=== PATIENT | male | born 1955 | race African-American/Black ===

== ENCOUNTER 2020-03-04 16:34 | Inpatient (IN) | payer OTHER ==
[2020-03-04] MEDS ORDERED: Diltiazem 125 MG/25 ML ONE (16:43)
[2020-03-04] MEDS ORDERED: Fentanyl 100 MCG/2 ML VIAL ONE ×2 (16:47→17:48)
[2020-03-04 17:12] LABS: Actual Bicarbonate (HCO3a) 23.5 mEq/L (22-28); Analyzer IN Cardio ER; Base Excess (BEa) -5.4 mEq/L (-2.0 to +3.0); CO2 Tension 58.8 mmHg (35.0-45.0); Calcium, Ionized 1.12 mmol/L (1.12-1.30); Carboxyhemoglobin (COHb) 0.4 gm% (0.0-3.0); Hemoglobin (Hb) 16.9 g/dL (14.0-18.0); O2 Tension (PaO2), arterial 55.7 mmHg (> 80.0); Potassium - ABG Lab 3.93 mmol/L (3.70-5.30); pH, Arterial 7.22 (7.35-7.45)
[2020-03-04 17:13] LABS: Puncture Site LBA
[2020-03-04 17:32] LABS: Hemoglobin 16.7 g/dL (14.0-18.0); Mean Corpuscular HGB CONC 32.2 g/dL (32.0-36.0); Mean Corpuscular Hemoglobin 30.2 pg (27.0-31.0); Mean Corpuscular Volume 93.8 fL (78.0-98.0); Mean Platelet Volume 7.1 fL (7.4-10.4); Platelet Count 302 thou/uL (130-400); RBC Distribution Width 12.9 % (11.5-14.5); Red Blood Cell (RBC) Count 5.52 mill/uL (4.70-6.10); White Blood Cell (WBC) Count 22.1 thou/uL (4.8-10.8)
[2020-03-04 17:35] LABS: INR-International Normal Ratio 1.1; PTT 26.9 sec (22.9-36.1)
[2020-03-04 17:50] LABS: Band 12 % (5-11); Eosinophils 1 % (0-10); Lymphocytes 10 % (21-51); MDiff Complete? YES; Metamyelocyte 2 % (0-0); Monocytes 6 % (0-10); Neutrophil 67 % (42-75); Nucleated RBC 2 % (0); Platelet Morphology Comment Appears Adequate; RBC Morphology Normal; Reactive Lymphocytes 2 % (0-10)
[2020-03-04] MEDS ORDERED: fentaNYL Citrate/PF 2,000 MCG in Sodium Chloride 0.9% 60 ML IV SCH (17:56)
[2020-03-04 17:57] LABS: ALT (SGPT) 38 U/L (8-55); AST (SGOT) 87 U/L (5-34); Albumin 2.9 g/dL (3.4-4.8); Alkaline Phosphatase 76 U/L (40-110); Anion Gap 18 mmol/L (10-20); BUN (Urea Nitrogen) 17 mg/dL (8.4-25.7); Bilirubin, Total 1.2 mg/dL (0.2-1.2); Calc. Creatinine Clearance 0 mL/min (70-130); Calcium 7.7 mg/dL (7.8-10.44); Carbon Dioxide 18 mmol/L (23-31); Chloride 101 mmol/L (98-107); Estimated GFR-MDRD Greater than 90; Globulin 4.4 g/dL (2.4-3.5); Glucose 145 mg/dL (80-115); Protein, Total 7.3 g/dL (5.8-8.1); Sodium 133 mmol/L (136-145)
[2020-03-04] MEDS ORDERED: Enoxaparin Sodium 100 MG/ML SYRINGE ONE (18:16)
[2020-03-04] MEDS ORDERED: cefTRIAXone\\ROCEPHIN 2 GM VIAL ONE (18:16)
[2020-03-04] MEDS ORDERED: Azithromycin 500 MG VIAL ONE (18:16)
--- NOTE | 2020-03-04 18:22 | RAD ---
CHEST ONE VIEW: 03/04/20 HISTORY: Respiratory distress. COMPARISON: None. FINDINGS: There are peripheral patchy air space opacities. No pneumothorax. Enteric tube at level of clavicles. Enteric tube tip low diaphragm although out of field of view. Heart size is upper limits of normal. IMPRESSION: Peripheral patchy air space opacities can be seen with atypical viral infectious process. POS: HOME
[2020-03-04 18:29] LABS: CKMB 19.2 ng/mL (0-6.6)
[2020-03-04] MEDS ORDERED: Acetaminophen 650 MG Suppository ONE (18:47)
[2020-03-04] MEDS ORDERED: Sodium Chloride 0.9% 0 ML ONE (19:38)
[2020-03-04] MEDS ORDERED: Vecuronium 10 MG VIAL ONE (19:38)
[2020-03-04] MEDS ORDERED: Sodium Chloride 0.9% 15 ML NEB ONE (19:39)
[2020-03-04] MEDS ORDERED: Rocuronium Bromide 10 MG/ML (10ML VIAL) ONE (19:40)
[2020-03-04] MEDS ORDERED: Propofol 1,000 MG/100 ML VIAL IV ONE (19:43)
[2020-03-04] MEDS ORDERED: Labetalol HCl 100 MG/20 ML VIAL SLOW IVP PRN (20:12)
[2020-03-04] MEDS ORDERED: hydrALAZINE 20 MG/ML VIAL SLOW IVP PRN (20:12)
[2020-03-04] MEDS ORDERED: Ondansetron PF 4 MG/2 ML Vial IVP PRN (20:12)
[2020-03-04] MEDS ORDERED: Promethazine HCl 12.5 MG in Sodium Chloride 0.9% 50 ML IVPB PRN (20:12)
[2020-03-04] MEDS ORDERED: cloNIDine 0.1 MG TAB PO PRN (20:12)
[2020-03-04] MEDS ORDERED: Bisacodyl 10 MG SUPP PR PRN (20:13)
[2020-03-04] MEDS ORDERED: Acetaminophen 325 MG TAB PO PRN (20:13)
[2020-03-04] MEDS ORDERED: Bisacodyl 5 MG TAB PO PRN (20:13)
[2020-03-04] MEDS ORDERED: Norepinephrine 8 MG/0.9% NS 250 ML IVPB PRN (20:13)
[2020-03-04] MEDS ORDERED: Milk Of Magnesia 30 ML UDCUP PO PRN (20:13)
[2020-03-04] MEDS ORDERED: HYDROcodone/Acetaminophen 5/325 mg Tablet PO PRN (20:13)
[2020-03-04] MEDS ORDERED: Mag-Al 1200 mg/1200 mg/30 ML UDCUP PO PRN (20:13)
[2020-03-04] MEDS ORDERED: CCU Electrolyte Replacement 1 EACH IVPB SCH (20:13)
[2020-03-04] MEDS ORDERED: Ventilator Sedation Protocol 1 EACH FS SCH (20:15)
--- NOTE | 2020-03-04 20:16 | PDOC.HHP ---
Hospitalist HPI - History of Present Illness Respiratory failure History of Present Illness: Patient is a 64 year old incarcerated male with PMH HCV, CAD, HTN, HLD who presented to ED intubated after experiencing respiratory failure at his [facility] unit. Per nurse who got report from unit patient was doing well this AM however became acutely short of breath in afternoon and when EMS arrived, his SpO2 was in 50s and patient was intubated on scene. his HR was 150 and wide complex, he was also hypertensive but was improved in ED with cardene drip. . There was concern for covid reported, so patient had a swab done in ED. In ED, troponin checked and was 2.8, reported history includes CAD. he was too unstable for transport to [facility] so admitted here. Hospitalist ROS - Review of Systems ROS unobtainable: due to endotracheal tube - Medication Medications: aspirin oral TueMar 04, 2020 17:23 EDWARD Dia Kaitlyn tablet : Strength - 81 mg : ORAL Patient Dose: 81 mg Oral once a day. atorvastatin TueMar 04, 2020 17:24 EDWARD Dia Kaitlyn tablet : Strength - 40 mg : ORAL Patient Dose: 40 mg Oral once a day. carvedilol TueMar 04, 2020 17:25 EDWARD Dia Kaitlyn tablet : Strength - 12.5 mg : ORAL Patient Dose: 12.5 mg Oral 2 times a day. dipyridamole oral TueMar 04, 2020 17:25 EDWARD Dia Kaitlyn tablet : Strength - 75 mg : ORAL Patient Dose: 75 mg Oral 3 times a day. DULoxetine TueMar 04, 2020 17:26 EDWARD Dia Kaitlyn capsule,delayed release(DR/EC) : Strength - 30 mg : ORAL Patient Dose: 30 mg Oral once a day. gemfibrozil TueMar 04, 2020 17:27 EDWARD Dia Kaitlyn tablet : Strength - 600 mg : ORAL Patient Dose: 600 mg Oral 2 times a day. levothyroxine oral TueMar 04, 2020 17:27 EDWARD Dia Kaitlyn tablet : Strength - 50 mcg : ORAL Patient Dose: 0.05 mg Oral once a day (at bedtime). lisinopril TueMar 04, 2020 17:28 South, RN, Yu tablet : Strength - 40 mg : ORAL Patient Dose: 40 mg Oral once a day. terazosin TueMar 04, 2020 17:28 EDWARD Dia, Yu capsule : Strength - 5 mg : ORAL Patient Dose: 5 mg Oral once a day. nitroglycerin sublingual TueMar 04, 2020 17:29 EDWARD Dia, Yu tablet, sublingual : Strength - 0.4 mg : SUBLINGUAL Patient Dose: 0.4 mg Sublingual As Needed. Hospitalist History - Past Medical History Other Medical History: HCV, CAD, HTN, HLD - Past Surgical History Other Surgical History: unable to obtain due to intubated status - Family History Other Family History: unable to obtain due to intubated status - Social History Other Social History: unable to obtain due to intubated status - Exam General - other findings: intubated, sedated, prone position Eye: PERRL, anicteric sclera ENT: normocephalic atraumatic, no oropharyngeal lesions, moist mucosa ENT - other findings: ET tube in place Neck: supple, symmetric, no JVD, no thyromegaly, no lymphadenopathy, no carotid bruit Heart: RRR, no murmur, no gallops, no rubs, normal peripheral pulses Respiratory: CTAB, no wheezes, no ronchi, normal chest expansion, no tachypnea, normal percussion, rales Gastrointestinal: soft, non-tender, non-distended, normal bowel sounds, no palpable masses, no hepatomegaly, no splenomegaly, no bruit Extremities: no cyanosis, no clubbing, no edema Skin: normal turgor, no lesions, no rashes Neurological - other findings: limited by sedation, see above Musculoskeletal: normal tone, no muscle wasting Hospitalist Results - Labs Result Diagrams: 03/05/20 03:41 03/05/20 03:41 Lab results: WBC 22.1 thou/uL (4.8-10.8) H 03/04/20 17:13 Hgb 16.7 g/dL (14.0-18.0) 03/04/20 17:13 Hct 51.8 % (42.0-52.0) 03/04/20 17:13 MCV 93.8 fL (78.0-98.0) 03/04/20 17:13 Plt Count 302 thou/uL (130-400) 03/04/20 17:13 Band Neuts % (Manual) 12 % (5-11) H 03/04/20 17:13 ABG pH 7.22 (7.35-7.45) L* 03/04/20 17:07 ABG pCO2 58.8 mmHg (35.0-45.0) H 03/04/20 17:07 ABG pO2 55.7 mmHg (> 80.0) L* 03/04/20 17:07 Sodium 133 mmol/L (136-145) L 03/04/20 17:13 Potassium 4.0 mmol/L (3.5-5.1) 03/04/20 17:13 Chloride 101 mmol/L (98-107) 03/04/20 17:13 Carbon Dioxide 18 mmol/L (23-31) L 03/04/20 17:13 BUN 17 mg/dL (8.4-25.7) 03/04/20 17:13 Creatinine 0.84 mg/dL (0.7-1.3) 03/04/20 17:13 Glucose 145 mg/dL (80-115) H 03/04/20 17:13 Lactic Acid 3.0 mmol/L (0.5-2.2) H 03/04/20 17:13 Calcium 7.7 mg/dL (7.8-10.44) L 03/04/20 17:13 Total Bilirubin 1.2 mg/dL (0.2-1.2) 03/04/20 17:13 AST 87 U/L (5-34) H 03/04/20 17:13 ALT 38 U/L (8-55) 03/04/20 17:13 Alkaline Phosphatase 76 U/L (40-110) 03/04/20 17:13 CK-MB (CK-2) 19.2 ng/mL (0-6.6) H* 03/04/20 17:13 Troponin I 2.843 ng/mL (< 0.028) H* 03/04/20 17:13 B-Natriuretic Peptide 345.3 pg/mL (0-100) H 03/04/20 17:13 Serum Total Protein 7.3 g/dL (5.8-8.1) 03/04/20 17:13 Albumin 2.9 g/dL (3.4-4.8) L 03/04/20 17:13 Additional comment: VITAL SIGNS TueMar 04, 2020 18:35 EDWARD Dia Kaitlyn BP: 165/119 MAP: 134 Pulse: 145 Resp: 24 Temp: 101.7 (Criticore Temp) Pain: UTR O2 sat: 91 on (Ventilator) End-Tidal CO2: 24 Time: 03/04/2020 18:35. VITAL SIGNS TueMar 04, 2020 18:43 EDWARD Dia Kaitlyn BP: 126/92 MAP: 103 Pulse: 114 Resp: 25 Temp: 101.7 (Criticore Temp) Pain: UTR O2 sat: 92 on (Ventilator) End-Tidal CO2: 25 Time: 03/04/2020 18:43. VITAL SIGNS TueMar 04, 2020 19:00 EDWARD Ramirez Emily BP: 127/85 Pulse: 114 Resp: 23 Temp: 101.3 (Criticore Temp) Pain: utr O2 sat: 88 on (Ventilator) End-Tidal CO2: 26 Time: 03/04/2020 19:00. VITAL SIGNS TueMar 04, 2020 19:10 EDWARD Ramirez Emily BP: 93/69 MAP: 77 Pulse: 103 Resp: 25 Temp: 101.3 (Criticore Temp) Pain: utr O2 sat: 92 on (Ventilator) End-Tidal CO2: 25 Time: 03/04/2020 19:10. Hospitalist H&P A/P - Plan Plan: Patient is a 64 year old incarcerated male with PMH HCV, CAD, HTN, HLD who presented to ED intubated after experiencing respiratory failure at his [facility] unit. # acute hypoxic respiratory failure - patient presented from unit intubated, suspected covid reported and swab drawn and pending, placed prone and discussed with Dr Duenas who will consult with us in ICU. - standard covid precautions, covid and flu swab - empiric abx # HTN - PRNs in chart # sepsis - likely due to respiratory illness above, follow cultures # tachyarrhythmia - resolved by time of my evalaution, dilt drip titrate in ICU
[2020-03-04] MEDS ORDERED: Propofol BOLUS 1,000 MG/100 ML VIAL IV PRN (20:18)
[2020-03-04] MEDS ORDERED: Potassium Phosphate 12 MMOL in Sodium Chloride 0.9% 250 ML 250 ML IV PRN (20:18)
[2020-03-04] MEDS ORDERED: Potassium Chloride 40 MEQ in Sodium Chloride 0.9% 250 ML 250 ML IVPB PRN (20:18)
[2020-03-04] MEDS ORDERED: Potassium Phosphate 9 MMOL in Sodium Chloride 0.9% 100 ML IVPB PRN (20:18)
[2020-03-04] MEDS ORDERED: Lorazepam 2 MG/ML VIAL SLOW IVP PRN (20:18)
[2020-03-04] MEDS ORDERED: Potassium Chloride 40 MEQ in Premix Bag 1 BAG IVPB PRN (20:18)
[2020-03-04] MEDS ORDERED: PHOS-NAK 1 PKT PACK PO PRN ×2 (20:18)
[2020-03-04] MEDS ORDERED: CCU ELECTROLYTE REPLACEMENT PROTOCOL FS PRN (20:18)
[2020-03-04] MEDS ORDERED: Potassium Chloride 20 MEQ TAB PO PRN (20:18)
[2020-03-04] MEDS ORDERED: Morphine 2 MG/ML SYRINGE SLOW IVP PRN (20:18)
[2020-03-04] MEDS ORDERED: Magnesium 2 GM/50 ML 2 GM in Premix Bag 1 BAG IVPB PRN (20:18)
[2020-03-04] MEDS ORDERED: Fentanyl BOLUS 250 ML IVPB PRN (20:18)
[2020-03-04] MEDS ORDERED: DISCONTINUE PREVIOUS NARCOTIC PAIN MEDICATIONS AND BENZODIAZEPINES FS SCH (20:18)
[2020-03-04] MEDS ORDERED: Potassium Phosphate 15 MMOL in Sodium Chloride 0.9% 250 ML 250 ML IV PRN (20:18)
[2020-03-04] MEDS ORDERED: Magnesium Oxide 400 MG TAB PO PRN ×2 (20:18)
[2020-03-04 20:39] LABS: Lactic Acid 5.3 mmol/L (0.5-2.2)
[2020-03-04] MEDS: Sodium Chloride 0.9% 1,000 ML IV SCH ×2 (20:41→21:19)
[2020-03-04] MEDS ORDERED: Sodium Chloride 0.9% 1,000 ML IV SCH (20:45)
[2020-03-04] MEDS: Famotidine 40 MG/5 ML Oral Suspension PER TUBE SCH (20:48)
[2020-03-04 20:55] LABS: Troponin I 5.673 ng/mL (< 0.028)
[2020-03-04] MEDS ORDERED: Albumin 25% 25 GM/100 ML BOT IVPB SCH (21:00)
[2020-03-04] MEDS ORDERED: cefTRIAXone\\ROCEPHIN 1 GM in Sodium Chloride 0.9% 100 ML IVPB ONE (21:54)
[2020-03-04] MEDS ORDERED: Enoxaparin Sodium 80 MG/0.8 ML SYRINGE SC ONE (21:56)
[2020-03-04 23:57] LABS: Troponin I 7.292 ng/mL (< 0.028)
[2020-03-05] MEDS: Rocuronium Bromide 10 MG/ML (10ML VIAL) IVP PRN ×6 (00:08→19:21)
[2020-03-05] MEDS ORDERED: Aspirin 325 mg Enteric Coated Tablet PO SCH (00:30)
[2020-03-05] MEDS: Sodium Chloride 0.9% 1,000 ML IV SCH ×4 (01:24→21:12)
--- NOTE | 2020-03-05 02:38 | CON ---
DATE OF CONSULTATION: 03/04/2020 HISTORY OF PRESENT ILLNESS: Bean Herrmann is a 64-year-old male [facility] inmate. He is transferred to [facility] today from the [place] [facility]. He is unable to give a history. He is intubated. No history could be provided by the guards. No medical chart accompanied the patient. He has diffuse infiltrates. That unit has been associated with a COVID-19 outbreak, so it is presumed that is what we dealing with. PAST MEDICAL HISTORY: Unknown. FAMILY HISTORY: Unknown. SOCIAL HISTORY: Unknown. REVIEW OF SYSTEMS: Not obtainable. PHYSICAL EXAMINATION: VITAL SIGNS: Blood pressures in the Emergency Department were not reported as low. His first blood pressure when he arrived in the ICU was in 70s. He has 100% oxygen in the Emergency Department, so he was prone ventilated when he arrived from the ICU. HEAD AND NECK: Unremarkable. LUNGS: Remarkable for coarse breath sounds. HEART: Regular rhythm. ABDOMEN: Soft. EXTREMITIES: Without edema. LABORATORY DATA: White count 22.1, hemoglobin 16.7, and platelets 302. Electrolytes are unremarkable. Bicarb was 18 and lactate was 5.3. Troponin was elevated at 5 and BNP 345. He had a temperature of a 101 in the Emergency Department. CLINICAL IMPRESSION AND PLAN: Presumed COVID-19 pneumonia to be ventilated. Suggested dose started. He is on Zithromax broad antimicrobial therapy. Begin steroids. Once we are sure he has COVID, we can consider Itolizumab or convalescent plasma. Will be kept paralyzed while he is prone ventilated. A low dose of epinephrine can be given until he is adequately volume resuscitated. Critical care time 30 minutes. Job ID: [id number] MTDD
[2020-03-05 04:14] LABS: Anion Gap 16 mmol/L (10-20); BUN (Urea Nitrogen) 19 mg/dL (8.4-25.7); Calc. Creatinine Clearance 83 mL/min (70-130); Calcium 7.2 mg/dL (7.8-10.44); Carbon Dioxide 16 mmol/L (23-31); Chloride 105 mmol/L (98-107); Estimated GFR-MDRD 83; Glucose 142 mg/dL (80-115); Magnesium 2.1 mg/dL (1.6-2.6); Potassium 4.2 mmol/L (3.5-5.1); Sodium 133 mmol/L (136-145)
[2020-03-05 04:17] LABS: Band 4 % (5-11); Hemoglobin 15.1 g/dL (14.0-18.0); Lymphocytes 2 % (21-51); MDiff Complete? YES; Mean Corpuscular HGB CONC 33.6 g/dL (32.0-36.0); Mean Corpuscular Hemoglobin 31.3 pg (27.0-31.0); Mean Corpuscular Volume 93.3 fL (78.0-98.0); Mean Platelet Volume 7.7 fL (7.4-10.4); Monocytes 9 % (0-10); Neutrophil 85 % (42-75); Platelet Count 246 thou/uL (130-400); Platelet Morphology Comment Appears Adequate; RBC Distribution Width 13.2 % (11.5-14.5); RBC Morphology Normal; Red Blood Cell (RBC) Count 4.82 mill/uL (4.70-6.10); White Blood Cell (WBC) Count 20.4 thou/uL (4.8-10.8)
[2020-03-05 04:30] LABS: Critical Call Chem Troponin I RESULT DECREASING; Troponin I 6.995 ng/mL (< 0.028)
[2020-03-05] MEDS ORDERED: Diltiazem 125 MG in Sodium Chloride 0.9% 100 ML IVPB SCH (04:45)
[2020-03-05] MEDS ORDERED: Nitroglycerin 0.4 MG TAB (25 Tab Bottle) SL PRN (04:45)
[2020-03-05 07:05] LABS: Actual Bicarbonate (HCO3a) 11.5 mEq/L (22-28); Base Excess (BEa) -9.2 mEq/L (-2.0 to +3.0); Calcium, Ionized 1.05 mmol/L (1.12-1.30); Carboxyhemoglobin (COHb) 0.2 gm% (0.0-3.0); Hemoglobin (Hb) 17.6 g/dL (14.0-18.0); O2 Tension (PaO2), arterial 89.6 mmHg (> 80.0); Potassium - ABG Lab 3.81 mmol/L (3.70-5.30); pH, Arterial 7.43 (7.35-7.45)
[2020-03-05 07:31] LABS: CO2 Tension 17.6 mmHg (35.0-45.0); Puncture Site RRAD
[2020-03-05] MEDS: Aspirin Chewable 81 MG TAB PER TUBE SCH (08:34)
[2020-03-05] MEDS: methylPREDNISolone Sod Succ/PF 125 MG/2 ML VIAL IVP SCH (08:36)
[2020-03-05] MEDS: Famotidine 40 MG/5 ML Oral Suspension PER TUBE SCH ×2 (08:37→19:20)
[2020-03-05] MEDS: Enoxaparin Sodium 80 MG/0.8 ML SYRINGE SC SCH ×2 (08:38→19:18)
[2020-03-05] MEDS ORDERED: Atorvastatin Calcium 40 MG TAB PO SCH (09:00)
[2020-03-05] MEDS ORDERED: Carvedilol 6.25 MG TAB PO SCH (09:00)
[2020-03-05] MEDS ORDERED: Terazosin HCl 5 MG CAP PO SCH (09:00)
[2020-03-05] MEDS ORDERED: Lisinopril 20 MG TAB PO SCH (09:00)
[2020-03-05] MEDS ORDERED: Enoxaparin Sodium 40 MG/0.4 ML SYRINGE SC SCH (09:00)
[2020-03-05] MEDS ORDERED: DULoxetine 30 MG CAP PO SCH (09:00)
[2020-03-05] MEDS ORDERED: Aspirin 81 mg Enteric Coated Tablet PO SCH (09:00)
--- NOTE | 2020-03-05 11:46 | PDOC.HOSPP ---
- Subjective Encounter Date: 03/05/20 Encounter Time: 10:00 Subjective: pt was on prone position, on bilevel ventilatory support Patient seen and examined. No overnight events - Objective Vital Signs & Weight: Vital Signs (12 hours) Pulse Resp BP 03/05/20 09:42 116/82 03/05/20 08:35 116/82 03/05/20 06:21 76 03/05/20 06:00 30 H 03/05/20 04:00 30 H 03/05/20 03:36 83 03/05/20 02:00 30 H 03/05/20 01:40 84 03/05/20 00:00 30 H Weight Admit Weight 187 lb Weight 187 lb Most Recent Monitor Data Heart Rate from ECG 83 NIBP 116/81 NIBP BP-Mean 92 Respiration from ECG 17 SpO2 100 I&O: 03/04/20 03/05/20 03/06/20 06:59 06:59 06:59 Intake Total 3344.8 Output Total 520 30 Balance 2824.8 -30 Result Diagrams: 03/05/20 03:41 03/05/20 03:41 Radiology Reviewed by me: Yes EKG Reviewed by me: Yes Hospitalist ROS - Review of Systems ROS unobtainable: due to endotracheal tube - Medication Medications: Active Medications Generic Name Dose Route Start Last Admin Trade Name Kdq PRN Reason Stop Dose Admin Aspirin 81 mg 03/05/20 09:00 03/05/20 08:34 Aspirin Chewable PER TUBE 81 mg DAILY LAN Administration Enoxaparin Sodium 80 mg 03/05/20 09:00 03/05/20 08:38 Lovenox SC 80 mg 0900,2100 LAN Administration Famotidine 20 mg 03/04/20 21:00 03/05/20 08:37 Pepcid PER TUBE 20 mg BID LAN Administration Epinephrine 1 mg/ Dextrose/ 251 mls @ 0 mls/hr 03/04/20 21:00 03/04/20 20:57 Water IVPB 251 mls INF LAN Administration Protocol Titrate Sodium Chloride 1,000 mls @ 125 mls/hr 03/04/20 21:00 03/05/20 08:33 Normal Saline 0.9% IV 1,000 mls .Q8H LAN Administration Methylprednisolone Sodium Succinate 80 mg 03/05/20 09:00 03/05/20 08:36 Solu-Medrol IVP 80 mg DAILY LAN Administration Rocuronium [place] 100 mg 03/04/20 20:38 03/05/20 08:37 Zemuron IVP 100 mg Q1HR PRN Administration Agitation Sodium Chloride 10 ml 03/04/20 21:00 03/05/20 08:38 Flush - Normal Saline IVF 10 ml Q12HR LAN Administration - Exam General Appearance: ill appearing Eye: PERRL ENT: normocephalic atraumatic Neck: supple Heart: RRR, no murmur, no gallops Respiratory - other findings: coarse sound bilateral Gastrointestinal: soft Extremities: no edema Hosp A/P (1) Acute respiratory failure with hypoxia Code(s): J96.01 - ACUTE RESPIRATORY FAILURE WITH HYPOXIA Status: Acute (2) Type [address] elevation Code(s): I21.A1 - MYOCARDIAL INFARCTION TYPE 2 Status: Acute (3) Hyponatremia Code(s): E87.1 - HYPO-OSMOLALITY AND HYPONATREMIA Status: Acute (4) Lactic acidosis Code(s): E87.2 - ACIDOSIS Status: Acute (5) Viral pneumonia Code(s): J12.9 - VIRAL PNEUMONIA, UNSPECIFIED Status: Acute - Plan old records reviewed/req, continue antibiotics continue ventilator support as per pulmonary IVF will defer to pulmonary continue solumedrol will repeat inflammatory markers tomorrow await covid test result, high suspected for covid based on on result next step would be to decide remsedivir vs plasma continue rocephin and azithromycin for now will add vitamin c, zinc sulfate continue lovenox cardiology on case
--- NOTE | 2020-03-05 15:55 | PRG ---
DATE OF SERVICE: 03/05/2020 SUBJECTIVE: Bean Herrmann is doing well proned. OBJECTIVE: VITAL SIGNS: Heart rate in the 70s, respiratory rate 30, blood pressure 108/77. LUNGS: Unchanged. HEART: Unchanged. ABDOMEN: Unchanged. LABORATORY DATA: COVID screen is still not back. White count 20.4, hemoglobin 15.1, platelets 246. Electrolytes are unremarkable. PH this morning 7.43, pCO2 of 17, pO2 of 89. IMPRESSION: Bilateral pneumonia, likely COVID since he came from [facility] unit that is overrun with COVID patients. PLAN: Continue ventilation. We will flip him on his back this evening. CRITICAL CARE TIME: 30 minutes. Job ID: [id number]
[2020-03-05 16:01] LABS: SARS-CoV-2 MS2 Positive; SARS-CoV-2 N Gene Positive; SARS-CoV-2 S Gene Positive; SARS-CoV-2 orf1ab Positive
--- NOTE | 2020-03-05 17:49 | CON ---
DATE OF CONSULTATION: 03/05/2020 HISTORY OF PRESENT ILLNESS: The patient is a 64-year-old gentleman, who presented with acute onset of dyspnea and tachycardia and required emergent intubation. The patient is unable to give a history. The patient presented to the emergency room with rapid tachycardia and was markedly hypertensive. He was treated with IV Cardizem. The patient was admitted and thought to have possible COVID pneumonia and a history could not be obtained. PAST MEDICAL HISTORY: Unknown. PAST SURGICAL HISTORY: None. SOCIAL HISTORY: Unknown. MEDICATIONS: Included: 1. Lisinopril 40 daily. 2. Gemfibrozil 600 daily. 3. Dipyridamole 75 t.i.d. 4. Cymbalta 30 daily. 5. Coreg 12.5 b.i.d. 6. Lipitor 40 at bedtime. 7. Aspirin 81 daily. PHYSICAL EXAMINATION: VITAL SIGNS: His blood pressure is 96/75, heart rate is 74. The physical examination is otherwise deferred secondary to COVID. LABORATORY RESULTS: White blood cell count 20.4, hemoglobin 15.1, hematocrit 45.0, and platelets 246. His sodium is 133, potassium 4.2, chloride 105, bicarb 16, BUN 19, creatinine 1.0, and glucose is 142. Troponin is 7.2. IMAGING DATA: Chest x-ray was suggestive of bilateral pneumonia. EKG revealed sinus tachycardia with a right bundle-branch block and left anterior fascicular block. IMPRESSION: 1. Pneumonia, possibly due to COVID. 2. Non-Q-wave myocardial infarction. 3. Respiratory failure. PLAN: This patient has possible COVID pneumonia, results are still pending. The patient may have suffered a non-Q-wave myocardial infarction or have myocarditis. The patient is being treated with aspirin and Lovenox. From a cardiac standpoint, we would continue him on low-dose Coreg if blood pressure tolerates. Further recommendation will follow. CRITICAL CARE TIME: 30 minutes. Job ID: [id number] MTDD
[2020-03-05] MEDS ORDERED: cefTRIAXone\\ROCEPHIN 1 GM in Sodium Chloride 0.9% 100 ML IVPB SCH (18:00)
[2020-03-05] MEDS: Atorvastatin Calcium 40 MG TAB PO SCH (19:18)
[2020-03-05] MEDS: Carvedilol 6.25 MG TAB PO SCH (19:18)
[2020-03-05] MEDS ORDERED: Azithromycin 500 MG in Sodium Chloride 0.9% 250 ML 250 ML IVPB SCH (20:00)
[2020-03-05] MEDS: Propofol 1,000 MG/100 ML VIAL IV PRN (21:11)
[2020-03-06] MEDS: Rocuronium Bromide 10 MG/ML (10ML VIAL) IVP PRN ×3 (00:07→08:42)
[2020-03-06] MEDS: fentaNYL Citrate/PF 2,000 MCG in Sodium Chloride 0.9% 60 ML IV SCH (01:00)
[2020-03-06 04:30] LABS: Anion Gap 15 mmol/L (10-20); BUN (Urea Nitrogen) 27 mg/dL (8.4-25.7); Calc. Creatinine Clearance 87 mL/min (70-130); Calcium 7.2 mg/dL (7.8-10.44); Carbon Dioxide 15 mmol/L (23-31); Chloride 111 mmol/L (98-107); Estimated GFR-MDRD 88; Glucose 142 mg/dL (80-115); Lactic Acid 3.1 mmol/L (0.5-2.2); Magnesium 2.4 mg/dL (1.6-2.6); Potassium 3.9 mmol/L (3.5-5.1); Sodium 137 mmol/L (136-145)
[2020-03-06 04:41] LABS: Band 12 % (5-11); Lymphocytes 8 % (21-51); MDiff Complete? YES; Mean Corpuscular HGB CONC 33.6 g/dL (32.0-36.0); Mean Corpuscular Hemoglobin 31.4 pg (27.0-31.0); Mean Corpuscular Volume 93.3 fL (78.0-98.0); Mean Platelet Volume 8.7 fL (7.4-10.4); Monocytes 4 % (0-10); Neutrophil 76 % (42-75); Platelet Count 286 thou/uL (130-400); Platelet Morphology Comment Appears Adequate; RBC Distribution Width 13.6 % (11.5-14.5); Red Blood Cell (RBC) Count 4.48 mill/uL (4.70-6.10); White Blood Cell (WBC) Count 15.7 thou/uL (4.8-10.8)
[2020-03-06] MEDS: Sodium Chloride 0.9% 1,000 ML IV SCH ×2 (05:24→13:08)
[2020-03-06] MEDS: Ascorbic Acid 500 mg Chewable Tablet PER TUBE SCH (08:40)
[2020-03-06] MEDS: Zinc Sulfate 220 MG CAP PER TUBE SCH (08:41)
[2020-03-06] MEDS: methylPREDNISolone Sod Succ/PF 125 MG/2 ML VIAL IVP SCH (08:41)
[2020-03-06] MEDS: Aspirin Chewable 81 MG TAB PER TUBE SCH (08:41)
[2020-03-06] MEDS: Carvedilol 6.25 MG TAB PO SCH ×2 (08:41→20:40)
[2020-03-06] MEDS: Enoxaparin Sodium 80 MG/0.8 ML SYRINGE SC SCH ×2 (08:41→20:41)
[2020-03-06] MEDS: Famotidine 40 MG/5 ML Oral Suspension PER TUBE SCH ×2 (10:18→20:41)
--- NOTE | 2020-03-06 11:12 | PDOC.HOSPP ---
- Subjective Encounter Date: 03/06/20 Encounter Time: 10:00 Subjective: pt is intubated, on bilevel ventilator, Patient seen and examined. No overnight events - Objective Vital Signs & Weight: Vital Signs (12 hours) Temp Pulse Resp BP 03/06/20 10:24 63 03/06/20 10:00 30 H 03/06/20 08:41 110/74 03/06/20 08:00 30 H 03/06/20 06:00 30 H 03/06/20 05:00 99.0 F 03/06/20 04:00 30 H 03/06/20 02:53 61 101/69 03/06/20 01:57 30 H 03/06/20 01:00 98.8 F 03/06/20 00:14 64 103/73 03/05/20 23:59 30 H Weight Admit Weight 187 lb Weight 192 lb 3.889 oz Most Recent Monitor Data Heart Rate from ECG 62 NIBP 122/71 NIBP BP-Mean 88 Respiration from ECG 30 SpO2 97 I&O: 03/05/20 03/06/20 03/07/20 06:59 06:59 06:59 Intake Total 3344.8 3524.4 60 Output Total 520 850 145 Balance 2824.8 2674.4 -85 Result Diagrams: 03/06/20 03:43 03/06/20 03:43 Radiology Reviewed by me: Yes EKG Reviewed by me: Yes Hospitalist ROS - Review of Systems ROS unobtainable: due to endotracheal tube - Medication Medications: Active Medications Generic Name Dose Route Start Last Admin Trade Name Freq PRN Reason Stop Dose Admin Ascorbic Acid 1,000 mg 03/06/20 09:00 03/06/20 08:40 Vitamin C PER TUBE 1,000 mg DAILY LAN Administration Aspirin 81 mg 03/05/20 09:00 03/06/20 08:41 Aspirin Chewable PER TUBE 81 mg DAILY LAN Administration Atorvastatin Calcium 40 mg 03/05/20 21:00 03/05/20 19:18 Lipitor PO 40 mg HS LAN Administration Carvedilol 6.25 mg 03/05/20 21:00 03/06/20 08:41 Coreg PO 6.25 mg BID LAN Administration Enoxaparin Sodium 80 mg 03/05/20 09:00 03/06/20 08:41 Lovenox SC 80 mg 0900,2100 LAN Administration Famotidine 20 mg 03/04/20 21:00 03/06/20 10:18 Pepcid PER TUBE 20 mg BID LAN Administration Fentanyl Citrate 2,000 mcg/ 100 mls @ 0 mls/hr 03/04/20 20:18 03/06/20 01:00 Sodium Chloride IV 04/03/20 20:18 100 mls INF LAN Administration Protocol Per Protocol Epinephrine 1 mg/ Dextrose/ 251 mls @ 0 mls/hr 03/04/20 21:00 03/04/20 20:57 Water IVPB 251 mls INF LAN Administration Protocol Titrate Sodium Chloride 1,000 mls @ 125 mls/hr 03/04/20 21:00 03/06/20 05:24 Normal Saline 0.9% IV 1,000 mls .Q8H LAN Administration Methylprednisolone Sodium Succinate 80 mg 03/05/20 09:00 03/06/20 08:41 Solu-Medrol IVP 80 mg DAILY LAN Administration Propofol 1,000 mg 03/04/20 20:18 03/05/20 21:11 Diprivan IV 04/03/20 20:18 1,000 mg INF PRN Administration TO ACHIEVE GOAL RASS Protocol Rocuronium [place] 100 mg 03/04/20 20:38 03/06/20 08:42 Zemuron IVP 100 mg Q1HR PRN Administration Agitation Sodium Chloride 10 ml 03/04/20 21:00 03/06/20 10:16 Flush - Normal Saline IVF Not Given Q12HR LAN Zinc Sulfate 220 mg 03/06/20 09:00 03/06/20 08:41 Zinc Sulfate PER TUBE 220 mg DAILY LAN Administration - Exam General Appearance: NAD, ill appearing Eye: PERRL, anicteric sclera ENT: normocephalic atraumatic, no oropharyngeal lesions Neck: supple, symmetric, no JVD Heart: RRR, no murmur, no gallops Respiratory - other findings: bilateral basal rales, Gastrointestinal: soft, non-distended, normal bowel sounds Extremities: no cyanosis, no clubbing Skin: normal turgor Hosp A/P (1) Acute respiratory failure with hypoxia Code(s): J96.01 - ACUTE RESPIRATORY FAILURE WITH HYPOXIA Status: Acute (2) Type [address] elevation Code(s): I21.A1 - MYOCARDIAL INFARCTION TYPE 2 Status: Acute (3) Hyponatremia Code(s): E87.1 - HYPO-OSMOLALITY AND HYPONATREMIA Status: Acute (4) Lactic acidosis Code(s): E87.2 - ACIDOSIS Status: Acute (5) Viral pneumonia Code(s): J12.9 - VIRAL PNEUMONIA, UNSPECIFIED Status: Acute - Plan old records reviewed/req, continue antibiotics, respiratory therapy continue ventilator support as per pulmonary IVF will defer to pulmonary continue solumedrol will repeat inflammatory markers tomorrow await covid test result, high suspected for covid based on on result next step would be to decide remsedivir vs plasma continue rocephin and azithromycin for now will add vitamin c, zinc sulfate continue lovenox cardiology on case 03/06/20 covid-19 is positive, will consult ID pt may need convalescent plasma vs Residevir medication reviewed continue to provide supportive care symptomatic treatment ventilator as per pulmonary prognosis guarded. pt has elevated inflammatory marker and monitor
[2020-03-06] MEDS: Propofol 1,000 MG/100 ML VIAL IV PRN (13:07)
--- NOTE | 2020-03-06 14:49 | PQF ---
CLINICAL DOCUMENTATION IMPROVEMENT CLARIFICATION FORM: ICD-10 Updated PLEASE DO AN ADDENDUM TO THE PROGRESS NOTE WITH ANY DOCUMENTATION UPDATES OR ADDITIONS AND CARRY THROUGH TO DC SUMMARY. THANK YOU. DATE: 03/06/2020 ATTN: Dr. Wakefield Please exercise your independent, professional judgment in responding to the clarification form. Clinical indicators are provided on the bottom of this form for your review Please check appropriate box(s) to clarify if the following diagnosis has been ruled in or ruled out: SEPSIS [ x ] Ruled in diagnosis [ x ] Continue to treat [ ] Resolved [ ] Ruled out diagnosis [ ] Improving [ ] Cannot rule out diagnosis [ ] Other diagnosis [ ] Unable to determine In addition, please specify: Present on Admission (POA): [ x ] Yes [ ] No [ ] Unable to determine For continuity of documentation, please document condition throughout progress notes and discharge summary. Thank You. CLINICAL INDICATORS - SIGNS / SYMPTOMS / LABS / RESULTS AND LOCATION IN MR H&P 03/04 : when EMS arrived, his SpO2 was in 50s and pt was intubated on scene. Lab: WBC 22.1 Lactic Acid 3.0 VS: BP 165/119. pulse 145, Resp. 24 Temp: 101.7 (Criticore Temp) O2 sat: 91 on (Ventilator) A/P: Acute Hypoxic respiratory failure Sepsis - likely due to respiratory illness RISKS: H&P 03/04: 64 yo incarcerated male with PMH HCV, CAD, HTN who presented to ED intubated after experiencing respiratory failure at his nursing home unit. 03/06 (Twyla) covid-19 is positive TREATMENT: H&P 03/04: -standard covid precautions, covid and flu swab. empiric abx MAR: Order 03/04: NS IV 125 mls/hr Order 03/04: Resp. Vent continuous ID Consult ordered 03/06 Thank you, Dianne (This form is maintained as a part of the permanent medical record) 2014 [employer] All Rights Reserved Dianne Nobles RN, BSN [email or web address]
--- NOTE | 2020-03-06 16:51 | PRG ---
DATE OF SERVICE: Bean Herrmann is no longer requiring prone ventilation. He did not have a blood gas done today, still ventilated at a rate of 30. His FiO2 requirements have dropped significantly since he was started on prone ventilation and then switched back to the supine position. He is being cross-matched for convalescent plasma today. We will continue to follow. Job ID: [id number]
[2020-03-06] MEDS ORDERED: Non-Formulary Item 1 EACH in Sodium Chloride 0.9% 250 ML 210 ML IV SCH (18:00)
[2020-03-06] MEDS: cefTRIAXone\\ROCEPHIN 1 GM in Sodium Chloride 0.9% 100 ML IVPB SCH (19:35)
--- NOTE | 2020-03-06 20:34 | CON ---
DATE OF CONSULTATION: 03/06/2020 HISTORY OF PRESENT ILLNESS: Mr. Herrmann is here because of COVID pneumonia, 64-year-old, who is an inmate at [facility] and has a history of hepatitis C with unknown prior treatment, osteoarthritis, coronary artery disease, and hyperlipidemia/hypertension, who has been admitted because of worsening dyspnea. The onset of symptoms appears to have been a few days before admission maybe a day or two, not clear from the note. The patient had to be intubated en route to the emergency room and on arrival, his BP was 200/110 and then came down to 160/98, pulse 129, respirations 22, and O2 saturation 90%. The temperature was 102. Subsequent temperatures remained elevated and BP came down to 120/85. In the initial exam, the patient was responsive to painful stimuli, did not follow commands. There is no evidence of jugular vein distention. Lungs with clear breath sounds. The heart exam is regular rate. No murmurs. Abdomen appears soft and bowel sounds are present. Flores catheter was inserted and other findings included sodium 133, creatinine 0.84, glucose 145, calcium 7.7, AST 87, and albumin 2.9. Troponin 2.8 and then 5.6. White cell count is 22,000, hemoglobin 16, platelets 302 with 12% bands. INR is 1.1. D-dimer is greater than 20. A pH of 7.22, pCO2 of 58, and pO2 of 55. Lactic acid was 3 and then 5.3 and now is down 3.1. LDH was 904. Ferritin 1173. C-reactive protein 9.91. COVID PCR was positive. The chest x- ray showed bilateral pulmonary infiltrates. The chest tube in proper position and currently, he is intubated. His FiO2 is 40% and O2 saturations are good at 100. His heart rate 61. PAST MEDICAL HISTORY: Includes coronary artery disease, hyperlipidemia, hypertension, hypothyroidism, osteoarthritis, and hepatitis C, unclear history of treatment. SOCIAL HISTORY: He is at [facility]. ALLERGIES: CARBAMATES. MEDICATIONS: 1. Atorvastatin. 2. Coreg. 3. Duloxetine. 4. Gemfibrozil. 5. Levothyroxine. 6. Lisinopril. 7. Terazosin. 8. Nitroglycerin. Here in the hospital, in addition, he is on; 1. Lovenox therapeutic dose. 2. Ceftriaxone. 3. Epinephrine. 4. Fentanyl. 5. Hydralazine. 6. Labetalol. 7. Lorazepam p.r.n. 8. Magnesium. 9. Methylprednisolone. 10. Nitroglycerin. 11. Ceftriaxone. 12. Azithromycin. PHYSICAL EXAMINATION: VITAL SIGNS: T-max 98.8 to 99, BP 113/95, pulse 61, respirations 30, and O2 saturation 100 and FiO2 of 40. I's and O's positive almost 6000 mL for the past 2 days. Indwelling Flores catheter. SKIN: Multiple tattoos. He has a peripheral IV access. Flores catheter. HEENT: Constricted pupils. Sclerae white. Conjunctivae normal. Orotracheal intubation. NECK: Some jugular vein distention. LUNGS: With symmetric air entry. No obvious crackles or wheezing. HEART: S1 and S2. Regular rate without murmurs. ABDOMEN: Not distended and soft. Bowel sounds are present. No organomegaly or ascites. No bladder distention. EXTREMITIES: No joint inflammatory activity. Pulses are 1+ in dorsalis pedis. No edema. No reflexes are noticeable at this time. NEUROLOGIC: He is sedated. LABORATORY DATA: Latest labs show white cell count 15.7, hemoglobin 14, and platelets 286 with 12% bands. Creatinine is 1.03. One out of two sets of blood cultures, coagulase negative Staph likely contaminant. Respiratory virus PCR negative except for the COVID test, which was positive. Respiratory culture unremarkable. ASSESSMENT: 1. Hypertension, coronary artery disease, and hep C, unknown history of treatment. 2. COVID-19 pneumonia, severe. DISCUSSION: Duration of therapy at this point is not clear, may be four or five days. The patient meets criteria for Remdesivir, I will go ahead and get started and continue supportive therapy. Proning as needed. Additional interventions such as convalescent plasma may be considered. A bit too soon for immunosuppressants to be considered. Blood cultures are negative, then I would probably consider discontinuing azithromycin and Rocephin. Continue monitoring inflammatory markers. Job ID: [id number] MTDD
[2020-03-06] MEDS: Atorvastatin Calcium 40 MG TAB PO SCH (20:40)
[2020-03-06] MEDS ORDERED: Azithromycin 500 MG in Sodium Chloride 0.9% 250 ML 250 ML IVPB SCH (21:00)
[2020-03-07] MEDS: Sodium Chloride 0.9% 1,000 ML IV SCH ×4 (01:31→20:29)
[2020-03-07] MEDS: Propofol 1,000 MG/100 ML VIAL IV PRN ×3 (04:02→19:05)
[2020-03-07 04:37] LABS: Anion Gap 15 mmol/L (10-20); BUN (Urea Nitrogen) 34 mg/dL (8.4-25.7); Calc. Creatinine Clearance 85 mL/min (70-130); Calcium 7.3 mg/dL (7.8-10.44); Carbon Dioxide 14 mmol/L (23-31); Chloride 113 mmol/L (98-107); Estimated GFR-MDRD 83; Glucose 125 mg/dL (80-115); Magnesium 2.6 mg/dL (1.6-2.6); Potassium 3.8 mmol/L (3.5-5.1); Sodium 138 mmol/L (136-145)
[2020-03-07 04:43] LABS: Band 3 % (5-11); Hemoglobin 14.1 g/dL (14.0-18.0); Lymphocytes 8 % (21-51); MDiff Complete? YES; Mean Corpuscular HGB CONC 34.4 g/dL (32.0-36.0); Mean Corpuscular Hemoglobin 31.8 pg (27.0-31.0); Mean Corpuscular Volume 92.6 fL (78.0-98.0); Mean Platelet Volume 8.2 fL (7.4-10.4); Monocytes 11 % (0-10); Neutrophil 78 % (42-75); Nucleated RBC 1 % (0); Platelet Count 350 thou/uL (130-400); RBC Distribution Width 13.7 % (11.5-14.5); Red Blood Cell (RBC) Count 4.42 mill/uL (4.70-6.10); White Blood Cell (WBC) Count 14.9 thou/uL (4.8-10.8)
[2020-03-07] MEDS: Zinc Sulfate 220 MG CAP PER TUBE SCH (08:21)
[2020-03-07] MEDS: Ascorbic Acid 500 mg Chewable Tablet PER TUBE SCH (08:21)
[2020-03-07] MEDS: Carvedilol 6.25 MG TAB PO SCH ×2 (08:22→20:27)
[2020-03-07] MEDS: Enoxaparin Sodium 80 MG/0.8 ML SYRINGE SC SCH (08:22)
[2020-03-07] MEDS: Aspirin Chewable 81 MG TAB PER TUBE SCH (08:22)
[2020-03-07] MEDS: Acetaminophen 650 MG/20.3 ML UDCUP PO PRN (08:22)
[2020-03-07] MEDS: methylPREDNISolone Sod Succ/PF 125 MG/2 ML VIAL IVP SCH (08:23)
[2020-03-07] MEDS: fentaNYL Citrate/PF 2,000 MCG in Sodium Chloride 0.9% 60 ML IV SCH (08:24)
[2020-03-07] MEDS: Famotidine 40 MG/5 ML Oral Suspension PER TUBE SCH ×2 (08:28→20:28)
--- NOTE | 2020-03-07 10:14 | PDOC.HOSPP ---
- Subjective Encounter Date: 03/07/20 Encounter Time: 07:00 Subjective: Patient seen and examined. pt is on vent, No overnight events - Objective Vital Signs & Weight: Vital Signs (12 hours) Temp Pulse Resp BP 03/07/20 08:22 131/70 03/07/20 06:59 60 122/82 03/07/20 06:00 30 H 03/07/20 04:00 97.5 F L 30 H 03/07/20 02:16 58 L 115/81 03/07/20 02:00 30 H 03/07/20 00:20 59 L 110/79 03/07/20 00:00 97.2 F L 30 H Weight Admit Weight 187 lb Weight 198 lb 10.184 oz Most Recent Monitor Data Heart Rate from ECG 59 NIBP 128/86 NIBP BP-Mean 100 Respiration from ECG 30 SpO2 100 I&O: 03/06/20 03/07/20 03/08/20 06:59 06:59 06:59 Intake Total 3524.4 3832.8 Output Total 850 1050 Balance 2674.4 2782.8 Result Diagrams: 03/07/20 03:38 03/07/20 03:38 Radiology Reviewed by me: Yes EKG Reviewed by me: Yes Hospitalist ROS - Review of Systems ROS unobtainable: due to endotracheal tube - Medication Medications: Active Medications Generic Name Dose Route Start Last Admin Trade Name Freq PRN Reason Stop Dose Admin Acetaminophen 650 mg 03/04/20 20:13 03/07/20 08:22 Tylenol Elixir PO 650 mg Q6H PRN Administration Fever > 101 or Mild Pain Ascorbic Acid 1,000 mg 03/06/20 09:00 03/07/20 08:21 Vitamin C PER TUBE 1,000 mg DAILY LAN Administration Aspirin 81 mg 03/05/20 09:00 03/07/20 08:22 Aspirin Chewable PER TUBE 81 mg DAILY LAN Administration Atorvastatin Calcium 40 mg 03/05/20 21:00 03/06/20 20:40 Lipitor PO 40 mg HS LAN Administration Carvedilol 6.25 mg 03/05/20 21:00 03/07/20 08:22 Coreg PO 6.25 mg BID LAN Administration Famotidine 20 mg 03/04/20 21:00 03/07/20 08:28 Pepcid PER TUBE 20 mg BID LAN Administration Fentanyl Citrate 2,000 mcg/ 100 mls @ 0 mls/hr 03/04/20 20:18 03/07/20 08:24 Sodium Chloride IV 04/03/20 20:18 100 mls INF LAN Administration Protocol Per Protocol Epinephrine 1 mg/ Dextrose/ 251 mls @ 0 mls/hr 03/04/20 21:00 03/04/20 20:57 Water IVPB 251 mls INF LAN Administration Protocol Titrate Sodium Chloride 1,000 mls @ 125 mls/hr 03/04/20 21:00 03/07/20 08:24 Normal Saline 0.9% IV 1,000 mls .Q8H LAN Administration Ceftriaxone Sodium 1 gm/ 100 mls @ 200 mls/hr 03/06/20 21:00 03/06/20 19:35 Sodium Chloride IVPB 03/09/20 21:29 100 mls 2100 LAN Administration Azithromycin 500 mg/ Sodium 250 mls @ 250 mls/hr 03/06/20 21:00 03/06/20 22: 06 Chloride IVPB 03/08/20 23:59 250 mls 2100 LAN Administration Methylprednisolone Sodium Succinate 80 mg 03/05/20 09:00 03/07/20 08:23 Solu-Medrol IVP 80 mg DAILY LAN Administration Propofol 1,000 mg 03/04/20 20:18 03/07/20 08:22 Diprivan IV 04/03/20 20:18 1,000 mg INF PRN Administration TO ACHIEVE GOAL RASS Protocol Rocuronium [place] 100 mg 03/04/20 20:38 03/06/20 08:42 Zemuron IVP 100 mg Q1HR PRN Administration Agitation Sodium Chloride 10 ml 03/04/20 21:00 03/07/20 08:29 Flush - Normal Saline IVF Not Given Q12HR LAN Zinc Sulfate 220 mg 03/06/20 09:00 03/07/20 08:21 Zinc Sulfate PER TUBE 220 mg DAILY LAN Administration - Exam General Appearance: NAD General - other findings: on vent Eye: PERRL, anicteric sclera ENT: normocephalic atraumatic Neck: supple, symmetric Heart: RRR, no murmur, no gallops Respiratory: CTAB, no wheezes, no rales Respiratory - other findings: anteriorly Gastrointestinal: soft Extremities: no cyanosis Skin: normal turgor Hosp A/P (1) Acute respiratory failure with hypoxia Code(s): J96.01 - ACUTE RESPIRATORY FAILURE WITH HYPOXIA Status: Acute (2) Type [address] elevation Code(s): I21.A1 - MYOCARDIAL INFARCTION TYPE 2 Status: Acute (3) Hyponatremia Code(s): E87.1 - HYPO-OSMOLALITY AND HYPONATREMIA Status: Acute (4) Lactic acidosis Code(s): E87.2 - ACIDOSIS Status: Acute (5) Viral pneumonia Code(s): J12.9 - VIRAL PNEUMONIA, UNSPECIFIED Status: Acute (6) COVID-19 Code(s): U07.1 - COVID-19 Status: Acute - Plan old records reviewed/req, continue antibiotics, respiratory therapy, DVT proph w /lovenox continue ventilator support as per pulmonary IVF will defer to pulmonary continue solumedrol will repeat inflammatory markers tomorrow await covid test result, high suspected for covid based on on result next step would be to decide remsedivir vs plasma continue rocephin and azithromycin for now will add vitamin c, zinc sulfate continue lovenox cardiology on case 03/06/20 covid-19 is positive, will consult ID pt may need convalescent plasma vs Residevir medication reviewed continue to provide supportive care symptomatic treatment ventilator as per pulmonary prognosis guarded. pt has elevated inflammatory marker and monitor 03/07/20 continue Remsedivir continue convalescent plasma vent as per pulmonary monitor inflammatory markers continue supportive care
[2020-03-07 13:11] VITALS: BMI 26.9
--- NOTE | 2020-03-07 16:50 | PRG ---
DATE OF SERVICE: 03/07/2020 SUBJECTIVE: Mr. Herrmann is clinically improving from a gas exchange standpoint. Respiratory rates been turned down from 30 to 20. He has been switched from bilevel volume ventilation, FiO2 is at 40%, heart rates in the 50s, blood pressure 110/74, respiratory rate is 20. Lungs, heart, and abdomen are unchanged. LABORATORY DATA: White count 14.9, hemoglobin 14.1, platelets 350. Electrolytes remarkable for mild hyperchloremia. C-reactive protein is down to 4.9. IMPRESSION: COVID-19 pneumonia in an inmate with respiratory failure. May be able to start weaning over the weekend. CRITICAL CARE TIME: 30 minutes. Job ID: [id number]
[2020-03-07] MEDS: Non-Formulary Item 1 EACH in Sodium Chloride 0.9% 250 ML 230 ML IV SCH (18:12)
[2020-03-07] MEDS: Atorvastatin Calcium 40 MG TAB PO SCH (20:27)
[2020-03-07] MEDS: cefTRIAXone\\ROCEPHIN 1 GM in Sodium Chloride 0.9% 100 ML IVPB SCH (20:28)
[2020-03-07] MEDS: Enoxaparin Sodium 40 MG/0.4 ML SYRINGE SC SCH (20:28)
[2020-03-08 04:49] LABS: Anion Gap 12 mmol/L (10-20); BUN (Urea Nitrogen) 36 mg/dL (8.4-25.7); Calc. Creatinine Clearance 99 mL/min (70-130); Calcium 7.4 mg/dL (7.8-10.44); Carbon Dioxide 16 mmol/L (23-31); Chloride 116 mmol/L (98-107); Estimated GFR-MDRD Greater than 90; Glucose 128 mg/dL (80-115); Potassium 4.2 mmol/L (3.5-5.1); Sodium 140 mmol/L (136-145)
[2020-03-08 05:25] LABS: Band 4 % (5-11); Hemoglobin 13.6 g/dL (14.0-18.0); Lymphocytes 10 % (21-51); MDiff Complete? YES; Mean Corpuscular HGB CONC 32.6 g/dL (32.0-36.0); Monocytes 7 % (0-10); Neutrophil 79 % (42-75); Platelet Count 428 thou/uL (130-400); Platelet Morphology Comment Appears Increased; Polychromasia SLIGHT = 2-3 cells (100X) (0-2/hpf); RBC Distribution Width 14.6 % (11.5-14.5); Red Blood Cell (RBC) Count 4.37 mill/uL (4.70-6.10)
[2020-03-08] MEDS: Propofol 1,000 MG/100 ML VIAL IV PRN ×3 (05:33→20:01)
[2020-03-08] MEDS: Sodium Chloride 0.9% 1,000 ML IV SCH ×3 (05:33→20:15)
[2020-03-08 07:13] LABS: Actual Bicarbonate (HCO3a) 15.5 mEq/L (22-28); Base Excess (BEa) -9.2 mEq/L (-2.0 to +3.0); CO2 Tension 30.9 mmHg (35.0-45.0); Calcium, Ionized 1.15 mmol/L (1.12-1.30); Carboxyhemoglobin (COHb) 0.7 gm% (0.0-3.0); Hemoglobin (Hb) 15.7 g/dL (14.0-18.0); Potassium - ABG Lab 4.03 mmol/L (3.70-5.30); pH, Arterial 7.32 (7.35-7.45)
[2020-03-08 07:26] LABS: O2 Tension (PaO2), arterial 57.4 mmHg (> 80.0)
[2020-03-08 07:27] LABS: ALV-art Gradient 189.175 (0-20); Puncture Site RRAD
[2020-03-08] MEDS: fentaNYL Citrate/PF 2,000 MCG in Sodium Chloride 0.9% 60 ML IV SCH (07:39)
[2020-03-08] MEDS: Acetaminophen 650 MG/20.3 ML UDCUP PO PRN (09:10)
[2020-03-08] MEDS: Ascorbic Acid 500 mg Chewable Tablet PER TUBE SCH (09:10)
[2020-03-08] MEDS: Carvedilol 6.25 MG TAB PO SCH ×2 (09:10→20:13)
[2020-03-08] MEDS: Zinc Sulfate 220 MG CAP PER TUBE SCH (09:10)
[2020-03-08] MEDS: Aspirin Chewable 81 MG TAB PER TUBE SCH (09:11)
[2020-03-08] MEDS: Enoxaparin Sodium 40 MG/0.4 ML SYRINGE SC SCH ×2 (09:11→20:14)
[2020-03-08] MEDS: methylPREDNISolone Sod Succ/PF 125 MG/2 ML VIAL IVP SCH (09:12)
[2020-03-08] MEDS: Famotidine 40 MG/5 ML Oral Suspension PER TUBE SCH ×2 (09:22→20:14)
--- NOTE | 2020-03-08 10:10 | PRG ---
DATE OF SERVICE: 03/08/2020 SUBJECTIVE: Bean Herrmann is a 64-year-old inmate who is intubated in the vent, coronavirus positive pneumonia, respiratory failure. OBJECTIVE: VITAL SIGNS: Temperature 98, blood pressure 114/78, pulse 62, saturation is 96%, and respiratory rate 20. CHEST: No wheezing. No crackles. CARDIAC: Normal S1, S2. No gallops. ABDOMEN: No masses. LABORATORY DATA: White count 14,000, H and H 10 and 33. PO2 is 57, pCO2 of 30, pH 7.32, but his sats in the monitor are 97%. Lytes are normal. X-ray shows bilateral infiltrates, remains unchanged. ASSESSMENT AND PLAN: Respiratory failure, acute respiratory distress syndrome, pneumonia. His gases show severe hypoxemia, though his saturations are much better on the monitor. I am concerned about decreasing his PEEP. Otherwise, we need to continue his steroids, empiric antibiotics, neb treatments. Supportive care. feedings, eventually placement. One-half hour of critical time. Job ID: [id number]
--- NOTE | 2020-03-08 10:22 | RAD ---
PORTABLE CHEST: Date: 03/08/2020 HISTORY: Respiratory distress. COMPARISON: 03/04/2020 exam. FINDINGS: Endotracheal and NG tubes are in satisfactory position. Patchy multifocal bilateral infiltrates are a gain demonstrated. Some of the changes in the right base are slightly improved. IMPRESSION: Bilateral infiltrates. This would suggest a COVID-type pneumonia. Slight improvement to some of the c hanges in the right base. POS: [facility]
--- NOTE | 2020-03-08 14:21 | EKG ---
Test Reason : Blood Pressure : / mmHG Vent. Rate : 149 BPM Atrial Rate : 150 BPM P-R Int : 000 ms QRS Dur : 160 ms QT Int : 354 ms P-R-T Axes : 000 -70 042 degrees QTc Int : 557 ms Atrial flutter with 2 to 1 block Left axis deviation Right bundle branch block Abnormal ECG Confirmed by JIMY OSCAR, RC Gomez ([id number]), photography editor CECILY GOMEZ ([id number]) on 03/08/2020 2:21:35 PM Referred By: Confirmed By:RC AHN MD
--- NOTE | 2020-03-08 14:38 | PDOC.HOSPP ---
- Subjective Encounter Date: 03/08/20 Encounter Time: 14:25 Subjective: f/u for COVID-19 PNA on mech ventilation with SIMV mode. Receiving Diprivan for sedation and TF's with Vital HP. - Objective Vital Signs & Weight: Vital Signs (12 hours) Temp Pulse Resp BP Pulse Ox 03/08/20 14:23 60 03/08/20 14:00 20 03/08/20 12:00 20 03/08/20 10:40 70 03/08/20 10:00 23 H 03/08/20 09:10 114/78 03/08/20 08:00 20 97 03/08/20 07:28 62 03/08/20 06:00 32 H 03/08/20 04:00 98.0 F 30 H Weight Admit Weight 187 lb Weight 205 lb 7.533 oz Most Recent Monitor Data Heart Rate from ECG 59 NIBP 114/73 NIBP BP-Mean 86 Respiration from ECG 10 SpO2 97 I&O: 03/07/20 03/08/20 03/09/20 06:59 06:59 06:59 Intake Total 3832.8 3865.5 Output Total 1050 1400 475 Balance 2782.8 2465.5 -475 Result Diagrams: 03/09/20 03:42 03/09/20 03:42 Additional Labs: Microbiology 03/04/20 21:45 Sputum Respiratory Culture - Final 03/04/20 21:45 Nasopharyngeal swab Respiratory Virus Panel (PCR) - Final 03/04/20 17:13 Venous blood - Right Arm Blood Culture - Final Coagulase Neg Staphylococcus 03/04/20 17:44 Venous blood - Right Hand Blood Culture - Preliminary NO GROWTH AT 48 HOURS Laboratory Tests 03/04/20 03/04/20 03/05/20 17:13 18:55 03:41 WBC 22.1 H 20.4 H D-Dimer Carbon Dioxide Ferritin Lactate Dehydrogenase C-Reactive Protein COVID-19 PCR DETECTED A* 03/06/20 03/06/20 03/06/20 03:43 03:43 03:43 WBC 15.7 H D-Dimer Greater than 20.00 H Carbon Dioxide Ferritin 1173.34 H Lactate Dehydrogenase C-Reactive Protein COVID-19 PCR 03/07/20 03/07/20 03/07/20 03:38 03:38 03:38 WBC 14.9 H D-Dimer Carbon Dioxide 14 L Ferritin Lactate Dehydrogenase 810 H C-Reactive Protein COVID-19 PCR 03/07/20 03/07/20 03/07/20 03:38 03:38 03:38 WBC D-Dimer 12.81 H Carbon Dioxide Ferritin 959.55 H Lactate Dehydrogenase C-Reactive Protein 4.92 H COVID-19 PCR Radiology Reviewed by me: Yes (PCXR - bilat infiltrates) EKG Reviewed by me: Yes (Tele - SR) Hospitalist ROS - Medication Medications: Active Medications Generic Name Dose Route Start Last Admin Trade Name Freq PRN Reason Stop Dose Admin Acetaminophen 650 mg 03/04/20 20:13 03/08/20 09:10 Tylenol Elixir PO 650 mg Q6H PRN Administration Fever > 101 or Mild Pain Ascorbic Acid 1,000 mg 03/06/20 09:00 03/08/20 09:10 Vitamin C PER TUBE 1,000 mg DAILY LAN Administration Aspirin 81 mg 03/05/20 09:00 03/08/20 09:11 Aspirin Chewable PER TUBE 81 mg DAILY LAN Administration Atorvastatin Calcium 40 mg 03/05/20 21:00 03/07/20 20:27 Lipitor PO 40 mg HS LAN Administration Carvedilol 6.25 mg 03/05/20 21:00 03/08/20 09:10 Coreg PO 6.25 mg BID LAN Administration Enoxaparin Sodium 40 mg 03/07/20 21:00 03/08/20 09:11 Lovenox SC 40 mg 0900,2100 LAN Administration Famotidine 20 mg 03/04/20 21:00 03/08/20 09:22 Pepcid PER TUBE 20 mg BID LAN Administration Fentanyl Citrate 2,000 mcg/ 100 mls @ 0 mls/hr 03/04/20 20:18 03/08/20 07:39 Sodium Chloride IV 04/03/20 20:18 100 mls INF LAN Administration Protocol Per Protocol Epinephrine 1 mg/ Dextrose/ 251 mls @ 0 mls/hr 03/04/20 21:00 03/04/20 20:57 Water IVPB 251 mls INF LAN Administration Protocol Titrate Sodium Chloride 1,000 mls @ 125 mls/hr 03/04/20 21:00 03/08/20 14:20 Normal Saline 0.9% IV 1,000 mls .Q8H LAN Administration Non-Formulary Medication 1 250 mls @ 250 mls/hr 03/07/20 18:00 03/07/20 18:12 each/ Sodium Chloride IV 03/10/20 18:59 250 mls 1800 LAN Administration Methylprednisolone Sodium Succinate 80 mg 03/05/20 09:00 03/08/20 09:12 Solu-Medrol IVP 80 mg DAILY LAN Administration Propofol 1,000 mg 03/04/20 20:18 03/08/20 14:21 Diprivan IV 04/03/20 20:18 1,000 mg INF PRN Administration TO ACHIEVE GOAL RASS Protocol Rocuronium [place] 100 mg 03/04/20 20:38 03/06/20 08:42 Zemuron IVP 100 mg Q1HR PRN Administration Agitation Sodium Chloride 10 ml 03/04/20 21:00 03/08/20 09:22 Flush - Normal Saline IVF Not Given Q12HR LAN Zinc Sulfate 220 mg 03/06/20 09:00 03/08/20 09:10 Zinc Sulfate PER TUBE 220 mg DAILY LAN Administration - Exam General - other findings: sedate on mech ventilation ENT: normocephalic atraumatic, no oropharyngeal lesions ENT - other findings: ETT in place Neck: supple, symmetric, no JVD, no thyromegaly Heart: RRR, no murmur, no gallops, no rubs, normal peripheral pulses Heart - other findings: S1, S2 Respiratory: CTAB, no wheezes, no rales, no ronchi Gastrointestinal: soft, non-tender, non-distended, normal bowel sounds Extremities: no cyanosis, no clubbing, no edema Skin: normal turgor, no lesions Neurological - other findings: sedate on mech ventilation Musculoskeletal: generalized weakness Psychiatric: somnolent, lethargic Hosp A/P (1) Pneumonia due to COVID-19 virus Code(s): U07.1 - COVID-19; J12.89 - OTHER VIRAL PNEUMONIA Status: Acute Plan: Completed Zithromax/Rocephin, continue Remdesivir/Solumedrol/Zinc sulfate (2) Acute respiratory failure with hypoxia Code(s): J96.01 - ACUTE RESPIRATORY FAILURE WITH HYPOXIA Status: Acute Plan: Continue SIMV, titrate to clinical response (3) COVID-19 Code(s): U07.1 - COVID-19 Status: Acute (4) Hyponatremia Code(s): E87.1 - HYPO-OSMOLALITY AND HYPONATREMIA Status: Acute Plan: Resolving, serial monitoring (5) Type [address] elevation Code(s): I21.A1 - MYOCARDIAL INFARCTION TYPE 2 Status: Acute Plan: Secondary to #1, medical mgmt, ASA/Lipitor - Plan continue antibiotics, older adult social work specialist, respiratory therapy, DVT proph w/SCDs Continue critical support SIMV titrating to clinical response Continue nutritional support with TF's Awaiting transfer to [facility] AM lab: BMP, CBC, ABG PCXR in am
[2020-03-08] MEDS: Non-Formulary Item 1 EACH in Sodium Chloride 0.9% 250 ML 230 ML IV SCH (17:27)
[2020-03-08] MEDS: Atorvastatin Calcium 40 MG TAB PO SCH (20:13)
[2020-03-09] MEDS: Propofol 1,000 MG/100 ML VIAL IV PRN ×3 (00:25→13:12)
[2020-03-09 02:06] VITALS: BP 133/79
[2020-03-09] MEDS: fentaNYL Citrate/PF 2,000 MCG in Sodium Chloride 0.9% 60 ML IV SCH (04:16)
[2020-03-09 04:18] LABS: Anion Gap 12 mmol/L (10-20); BUN (Urea Nitrogen) 34 mg/dL (8.4-25.7); Calc. Creatinine Clearance 112 mL/min (70-130); Calcium 7.5 mg/dL (7.8-10.44); Carbon Dioxide 15 mmol/L (23-31); Chloride 118 mmol/L (98-107); Estimated GFR-MDRD Greater than 90; Glucose 130 mg/dL (80-115); Potassium 4.5 mmol/L (3.5-5.1); Sodium 140 mmol/L (136-145)
[2020-03-09 04:50] LABS: Band 8 % (5-11); Hemoglobin 13.1 g/dL (14.0-18.0); Lymphocytes 7 % (21-51); MDiff Complete? YES; Mean Corpuscular HGB CONC 31.8 g/dL (32.0-36.0); Mean Corpuscular Hemoglobin 30.6 pg (27.0-31.0); Mean Corpuscular Volume 96.1 fL (78.0-98.0); Mean Platelet Volume 7.8 fL (7.4-10.4); Monocytes 12 % (0-10); Neutrophil 73 % (42-75); Platelet Count 442 thou/uL (130-400); Platelet Morphology Comment Appears Increased; Polychromasia SLIGHT = 2-3 cells (100X) (0-2/hpf); RBC Distribution Width 14.8 % (11.5-14.5); Red Blood Cell (RBC) Count 4.28 mill/uL (4.70-6.10); White Blood Cell (WBC) Count 13.4 thou/uL (4.8-10.8)
[2020-03-09] MEDS: Sodium Chloride 0.9% 1,000 ML IV SCH ×3 (05:17→10:14)
[2020-03-09 07:23] LABS: Actual Bicarbonate (HCO3a) 17.9 mEq/L (22-28); Base Excess (BEa) -8.1 mEq/L (-2.0 to +3.0); CO2 Tension 38.5 mmHg (35.0-45.0); Calcium, Ionized 1.16 mmol/L (1.12-1.30); Carboxyhemoglobin (COHb) 0.7 gm% (0.0-3.0); Hemoglobin (Hb) 12.8 g/dL (14.0-18.0); Potassium - ABG Lab 4.33 mmol/L (3.70-5.30); pH, Arterial 7.29 (7.35-7.45)
[2020-03-09 08:02] LABS: ALV-art Gradient 184.875 (0-20); O2 Tension (PaO2), arterial 52.2 mmHg (> 80.0); Puncture Site RRAD
--- NOTE | 2020-03-09 09:14 | PDOC.HOSPP ---
- Subjective Encounter Date: 03/09/20 Encounter Time: 08:20 Subjective: f/u for COVID-19 PNA on mech ventilation with SIMV @ 40%. Continues with sedation on Diprivan and receiving Vital HP TF's at 40ml/h. - Objective Vital Signs & Weight: Vital Signs (12 hours) Pulse Resp BP 03/09/20 08:03 65 03/09/20 06:00 27 H 03/09/20 04:00 27 H 03/09/20 02:04 61 133/79 03/09/20 02:00 24 H 03/09/20 00:00 27 H 03/08/20 22:01 63 135/86 03/08/20 22:00 27 H Weight Admit Weight 187 lb Weight 200 lb 6.403 oz Most Recent Monitor Data Heart Rate from ECG 67 NIBP 123/84 NIBP BP-Mean 97 Respiration from ECG 19 SpO2 97 I&O: 03/08/20 03/09/20 03/10/20 06:59 06:59 06:59 Intake Total 3912.1 4055.0 Output Total 1400 1830 Balance 2512.1 2225.0 Result Diagrams: 03/09/20 03:42 03/09/20 03:42 Radiology Reviewed by me: Yes (PCXR - bilat infiltrates similar to prior exam, lines/tubes in position) EKG Reviewed by me: Yes (Tele - SR) Hospitalist ROS - Medication Medications: Active Medications Generic Name Dose Route Start Last Admin Trade Name Freq PRN Reason Stop Dose Admin Acetaminophen 650 mg 03/04/20 20:13 03/08/20 09:10 Tylenol Elixir PO 650 mg Q6H PRN Administration Fever > 101 or Mild Pain Ascorbic Acid 1,000 mg 03/06/20 09:00 03/08/20 09:10 Vitamin C PER TUBE 1,000 mg DAILY LAN Administration Aspirin 81 mg 03/05/20 09:00 03/08/20 09:11 Aspirin Chewable PER TUBE 81 mg DAILY LAN Administration Atorvastatin Calcium 40 mg 03/05/20 21:00 03/08/20 20:13 Lipitor PO 40 mg HS LAN Administration Carvedilol 6.25 mg 03/05/20 21:00 03/08/20 20:13 Coreg PO 6.25 mg BID LAN Administration Enoxaparin Sodium 40 mg 03/07/20 21:00 03/08/20 20:14 Lovenox SC 40 mg 0900,2100 LAN Administration Famotidine 20 mg 03/04/20 21:00 03/08/20 20:14 Pepcid PER TUBE 20 mg BID LAN Administration Fentanyl Citrate 2,000 mcg/ 100 mls @ 0 mls/hr 03/04/20 20:18 03/09/20 04:16 Sodium Chloride IV 04/03/20 20:18 100 mls INF LAN Administration Protocol Per Protocol Epinephrine 1 mg/ Dextrose/ 251 mls @ 0 mls/hr 03/04/20 21:00 03/04/20 20:57 Water IVPB 251 mls INF LAN Administration Protocol Titrate Sodium Chloride 1,000 mls @ 125 mls/hr 03/04/20 21:00 03/09/20 05:17 Normal Saline 0.9% IV 1,000 mls .Q8H LAN Administration Non-Formulary Medication 1 250 mls @ 250 mls/hr 03/07/20 18:00 03/08/20 17:27 each/ Sodium Chloride IV 03/10/20 18:59 250 mls 1800 LAN Administration Methylprednisolone Sodium Succinate 80 mg 03/05/20 09:00 03/08/20 09:12 Solu-Medrol IVP 80 mg DAILY LAN Administration Propofol 1,000 mg 03/04/20 20:18 03/09/20 05:17 Diprivan IV 04/03/20 20:18 1,000 mg INF PRN Administration TO ACHIEVE GOAL RASS Protocol Rocuronium [place] 100 mg 03/04/20 20:38 03/06/20 08:42 Zemuron IVP 100 mg Q1HR PRN Administration Agitation Sodium Chloride 10 ml 03/04/20 21:00 03/08/20 20:15 Flush - Normal Saline IVF Not Given Q12HR LAN Zinc Sulfate 220 mg 03/06/20 09:00 03/08/20 09:10 Zinc Sulfate PER TUBE 220 mg DAILY LAN Administration - Exam General - other findings: sedate on mech ventilation Eye: PERRL, anicteric sclera ENT: normocephalic atraumatic, no oropharyngeal lesions ENT - other findings: ETT in place Neck: supple, symmetric, no JVD, no thyromegaly, no lymphadenopathy Heart: RRR, no murmur, no gallops, no rubs, normal peripheral pulses Heart - other findings: S1, S2 Respiratory: CTAB, no ronchi Respiratory - other findings: diminished in bases Gastrointestinal: soft, non-tender, non-distended, normal bowel sounds, no palpable masses Extremities: no cyanosis, no clubbing, no edema Skin: normal turgor, no lesions Psychiatric: somnolent, lethargic Hosp A/P (1) Pneumonia due to COVID-19 virus Code(s): U07.1 - COVID-19; J12.89 - OTHER VIRAL PNEUMONIA Status: Acute Plan: [facility], Zinc/Solumedrol (2) Acute respiratory failure with hypoxia Code(s): J96.01 - ACUTE RESPIRATORY FAILURE WITH HYPOXIA Status: Acute Plan: Continue SIMV @ 40% FIO2, see #1 above (3) COVID-19 Code(s): U07.1 - COVID-19 Status: Acute (4) Hyponatremia Code(s): E87.1 - HYPO-OSMOLALITY AND HYPONATREMIA Status: Acute Plan: Resolved (5) Type [address] elevation Code(s): I21.A1 - MYOCARDIAL INFARCTION TYPE 2 Status: Acute Plan: Medical mgmt - Plan continue antibiotics, social organization professor, respiratory therapy, DVT proph w/SCDs Continue critical support SIMV titrating to clinical response Continue nutritional support with Vital HP Decrease IVF's 75ml/h Awaiting transfer to [facility] Continue Remdesivir AM lab: BMP, CBC, ABG PCXR in am
[2020-03-09] MEDS: Enoxaparin Sodium 40 MG/0.4 ML SYRINGE SC SCH (10:12)
[2020-03-09] MEDS: Acetaminophen 650 MG/20.3 ML UDCUP PO PRN (10:13)
[2020-03-09] MEDS: methylPREDNISolone Sod Succ/PF 125 MG/2 ML VIAL IVP SCH (10:13)
[2020-03-09] MEDS: Ascorbic Acid 500 mg Chewable Tablet PER TUBE SCH (10:13)
[2020-03-09] MEDS: Aspirin Chewable 81 MG TAB PER TUBE SCH (10:13)
[2020-03-09] MEDS: Carvedilol 6.25 MG TAB PO SCH (10:14)
[2020-03-09] MEDS: Zinc Sulfate 220 MG CAP PER TUBE SCH (10:14)
[2020-03-09] MEDS: Famotidine 40 MG/5 ML Oral Suspension PER TUBE SCH (10:32)
--- NOTE | 2020-03-09 12:46 | RAD ---
PORTABLE CHEST: INDICATIONS: CCU followup. On ventilator. COMPARISON: 03/08/20 FINDINGS: The ET tube and NG tube remain in place. Hazy bilateral infiltrates again noted, not significantly ch anged. IMPRESSION: Stable chest findings. POS: [facility]W
--- NOTE | 2020-03-09 12:52 | PRG ---
DATE OF SERVICE: 03/09/2020 SUBJECTIVE: Day 4 in the ICU. He is given remdesivir and be transfused today. He is still very hypoxic. OBJECTIVE: VITAL SIGNS: Pulse 73, blood pressure 133/79, respiratory rate of 18. CHEST: No wheezing, crackles. CARDIAC: Normal S1, S2. No gallops. ABDOMEN: No masses. LABORATORY DATA: White count 13,000, H and H 13 and 41, platelet count . PO2 was only 42, pCO2 of 30%, pH of 7.29 on a rate of 20, 40%, PEEP of 8. BUN and creatinine normal. ASSESSMENT: Respiratory failure, coronavirus virus positive pneumonia, ARDS. PLAN: He is not weanable. I have added doxycycline to his present regime. Continue otherwise steroids, supportive care. Eventually convalescent plasma. One-half hour of critical time. Job ID: [id number]
[2020-03-09 13:39] VITALS: TEMP 98
--- NOTE | 2020-03-09 14:13 | PRG ---
DATE OF SERVICE: SUBJECTIVE: The patient is in ICU. He is intubated still. He is sedated. OBJECTIVE: VITAL SIGNS: T-max 98, blood pressure 130/80, pulse 71, respirations 20, O2 sat 98, and FiO2 is at 40. HEENT: His conjunctivae are clear. LUNGS: With clear breath sounds. HEART: S1 and S2, regular rate. ABDOMEN: Not distended. Bowel sounds are diminished. EXTREMITIES: No edema. NEUROLOGIC: Could not test motion because of sedation. LABORATORY DATA: White cell count is at 13.4, hemoglobin 13, and platelets 442, which is a bit higher. Neutrophil percentage down to 33 and monocytes at 12. D-dimer is down to 12.81. CRP is down to 4.92. Ferritin is down to 959. The patient is currently on aspirin, doxycycline, Medrol, and he received remdesivir. I believe completed his last dose. ASSESSMENT AND DISCUSSION: COVID-19 pneumonia, acute respiratory distress syndrome. Awaiting transfer to [facility]. Finishing remdesivir course, some improvement noted in the markers, stabilization of his ventilatory support. Job ID: [id number]
[2020-03-09] MEDS ORDERED: methylPREDNISolone Sod Succ 40 MG VIAL IVP SCH (21:00)
--- NOTE | 2020-03-10 14:24 | DIS ---
DATE OF ADMISSION: 03/04/2020 DATE OF DISCHARGE: 03/09/2020 DISCHARGE DIAGNOSES: 1. Pneumonia due to COVID-19 virus. 2. Acute hypoxic respiratory failure with mechanical ventilation. 3. COVID-19 viral infection. 4. Hyponatremia. 5. Type 2 myocardial infarction secondarily to #1 and demand ischemia. 6. Schizoaffective disorder. CONSULTATIONS: 1. Dr. Quevedo with Infectious Disease Service. 2. Dr. Arias and Yulissa with Pulmonology Critical Care Service. 3. Dr. Watson with Cardiology Service. PERTINENT LABORATORY AND X-RAY FINDINGS: Creatinine ranged between 0.88 to 1.09. Estimated GFR ranged between 83 to greater than 90. Lactic acid level ranged between 3.0 to 5.3, magnesium level 2.4, ferritin 1173. Lactate dehydrogenase 904. Troponin I ranged between 2.84 to 7.29. CRP ranged between 4.92 to 9.91. CBC showed white blood cell count ranging between 13.4 to 22.1. D-dimer ranged between 12.81 to greater than 20. Serology COVID-19 PCR detected, 03/04/2020. Blood cultures x2 dated 03/04/2020, showed 1/2 positive for coagulase negative Staphylococcus skin contaminant. Respiratory viral panel dated 03/04/2020, negative. Respiratory culture dated 03/04/2020, showed normal respiratory tequila. Portable chest x-ray dated 03/04/2020, showed peripheral patchy airspace opacities bilaterally. Portable chest x-ray dated 03/08/2020, showed bilateral infiltrates. Portable chest x-ray dated 03/09/2020, showed endotracheal tube and NG tube in appropriate positioning. Hazy bilateral infiltrates noted. HOSPITAL COURSE: The patient was initially admitted to the Critical Care Unit after presenting with acute hypoxic respiratory failure, transferred from the [facility]. The patient was obtunded and mechanically ventilated at the time of presentation in the emergency room. The patient was placed on broad-spectrum IV antibiotic therapy and transferred to the Critical Care Unit. The patient was evaluated by Pulmonology and Critical Care Service with recommendations for aggressive pulmonary supportive management. The patient received remdesivir as well as convalescent plasma, zinc sulfate, and doxycycline. The patient also received IV Solu-Medrol for aggressive pulmonary supportive management. The patient remained on mechanical ventilation throughout the hospital course at which point, discussions were initiated for transfer to [facility]. The patient was excepted at [facility] and ready for transfer, 03/09/2020. I have examined the patient at time of discharge with coordination of transfer and care. DISCHARGE MEDICATIONS: Medications at the time of discharge: 1. Enteric-coated aspirin 81 mg per tube daily. 2. Lipitor 40 mg per tube daily. 3. Carvedilol 12.5 mg per tube b.i.d. 4. Cymbalta 30 mg per tube daily. 5. Gemfibrozil 600 mg per tube b.i.d. 6. Lisinopril 40 mg p.o. daily. 7. Nitroglycerin 0.4 mg sublingually p.r.n. chest pain. 8. Terazosin 5 mg per tube daily. 9. Dipyridamole 75 mg per tube t.i.d. 10. Doxycycline IV. 11. Solu-Medrol 40 mg IV b.i.d. FOLLOWUP: The patient will follow up with [facility] Critical Care Service with air evac. CONDITION ON DISCHARGE: Critical. ACTIVITY: Bed-bound. DIET: Tube feeds with vital high-protein. CODE STATUS: Full. DISPOSITION: Transfer to [facility] by [facility], 03/09/2020. Job ID: [id number]
== END 2020-03-09 16:20 | disposition short-term general hospital (02) | DRG 870 ==
LOC: ERS 16:34 → CCU 17:50
PROVIDERS: ADMIT Internal Medicine; ATTEND Internal Medicine
PROC: 5A1955Z Respiratory Ventilation, Greater than 96 Consecutive Hours (ICD-10-PCS; principal; 2020-03-04)
PROC: 8E0ZXY6 Isolation (ICD-10-PCS; 2020-03-04)
PROC: 30233L1 Transfusion of Nonautologous Fresh Plasma into Peripheral Vein, Percutaneous Approach (ICD-10-PCS; 2020-03-06)
PROC: 30233K1 Transfusion of Nonautologous Frozen Plasma into Peripheral Vein, Percutaneous Approach (ICD-10-PCS; 2020-03-06)
DX: A41.89 Other specified sepsis (principal); U07.1 COVID-19; J12.89 Other viral pneumonia; J80 Acute respiratory distress syndrome; I21.A1 Myocardial infarction type 2; E87.1 Hypo-osmolality and hyponatremia; E87.2 Acidosis; F20.9 Schizophrenia, unspecified; I25.10 Atherosclerotic heart disease of native coronary artery without angina pectoris; I10 Essential (primary) hypertension; E78.5 Hyperlipidemia, unspecified; E03.9 Hypothyroidism, unspecified; M19.90 Unspecified osteoarthritis, unspecified site; B19.20 Unspecified viral hepatitis C without hepatic coma; Z78.1 Physical restraint status; Z79.899 Other long term (current) drug therapy; Z79.82 Long term (current) use of aspirin; Z79.890 Hormone replacement therapy
CPT/HCPCS: 36415; 36430; 51702; 71045; 80048; 80053; 82553; 82728; 82805; 83605; 83615; 83735; 83880; 84484; 85007; 85025; 85027; 85379; 85610; 85730; 86140; 86850; 86900; 86901; 87040; 87070; 87205; 87633; 87635; 93005; 94002; 94003; 96365; 96366; 96367; 96368; 96372; 96376; 99292; A4218; J0171; J0456; J0696; J1650; J2060; J2704; J2930; J3010; J3490; J7050; J7070; P9047; U0003